=== PATIENT | female | born 1980 | race Caucasian/White ===

== ENCOUNTER 2016-08-30 21:59 | Emergency (ER) | payer MEDICARE ==
[~2016-08-30] VITALS: Ht 172.7 cm; Wt 55.0 kg
[~2016-08-30 21:59] MED LIST: TOPI200 PO; TOPR25TA PO; TRAZ100T4 PO; XARE10TA PO
[2016-08-30 22:01] VITALS: BP 121/79; PULSE 118; RESP 20; TEMP 98.5; O2SAT 99
[2016-08-31] MEDS ORDERED: ONDANSETRON HCL 4 MG/2 ML VIAL IV ONE (01:30)
[2016-08-31] MEDS ORDERED: SODIUM CHLOR 0.9% 1000 ML INJ 1,000 ML IV ONE (01:30)
[2016-08-31 01:37] VITALS: RESP 20; O2SAT 97
--- NOTE | 2016-08-31 02:00 | RADRPT ---
EXAM DATE/TIME: 08/31/2016 01:52 [facility] COMPARISON: CHEST SINGLE AP, February 24, 2016, 16:56. INDICATIONS : Cough, headache. MEDICAL HISTORY : Nonresponsive SURGICAL HISTORY : Nonresponsive ENCOUNTER: Initial ACUITY: 1 day PAIN SCORE: 0/10 LOCATION: Bilateral chest FINDINGS: The lungs are clear without infiltrate, nodule, or mass. There is no appreciable pleural effusion fo r technique. Heart and mediastinum are unremarkable. CONCLUSION: No acute cardiopulmonary disease. James Knott MD on August 31, 2016 at 1:58 Board Certified Radiologist. This report was verified electronically.
[2016-08-31 02:03] LABS: AUTOMATED NEUTROPHIL # 6.7 TH/MM3 (1.8-7.7); BASOPHIL % 0.4 % (0.0-2.0); EOSINOPHIL # 0.3 TH/MM3 (0-0.4); EOSINOPHIL % 2.5 % (0.0-4.0); HEMATOCRIT 38.3 % (35.0-46.0); HEMO FLAGS DIFF FINAL; LYMPH % 26.8 % (9.0-44.0); LYMPHOCYTE # 2.8 TH/MM3 (1.0-4.8); MEAN CELL VOLUME 86.5 FL (80.0-100.0); MEAN CORPUSCULAR HEMOGLOBIN 30.4 PG (27.0-34.0); MEAN CORPUSCULAR HGB CONC 35.2 % (32.0-36.0); MONO % 5.2 % (0.0-8.0); NEUT % 65.1 % (16.0-70.0); PLATELET COUNT 247 TH/MM3 (150-450); RED BLOOD COUNT 4.43 MIL/MM3 (4.00-5.30); RED CELL DISTRIBUTION WIDTH 12.7 % (11.6-17.2); WHITE BLOOD COUNT 10.3 TH/MM3 (4.0-11.0)
[2016-08-31 02:18] LABS: APTT (PATIENT) 27.8 SEC (24.3-30.1); PROTHROMBIN TIME - PATIENT 11.2 SEC (9.8-11.6)
[2016-08-31 02:22] LABS: ALT (GPT) 23 U/L (10-53); ANION GAP 7 MEQ/L (5-15); AST (GOT) 19 U/L (15-37); BICARBONATE 28.1 MEQ/L (21.0-32.0); BLOOD UREA NITROGEN 12 MG/DL (7-18); CHLORIDE 106 MEQ/L (98-107); GLOMERULAR FILTRATION RATE 68 ML/MIN (>89); POTASSIUM 3.7 MEQ/L (3.5-5.1); SODIUM (NA) 141 MEQ/L (136-145)
[2016-08-31 02:32] LABS: ALKALINE PHOSPHATASE 79 U/L (45-117); TOTAL BILIRUBIN ADULT 0.3 MG/DL (0.2-1.0)
[2016-08-31] MEDS ORDERED: HYDROmorphone HCL PF 1 MG/ML VIAL IV PUSH ONE (03:00)
[2016-08-31] MEDS ORDERED: PROCHLORPERAZINE INJ 10 MG/2 ML VIAL IV PUSH ONE (03:00)
--- NOTE | 2016-08-31 03:07 | PD ---
HPI Chief Complaint: Headache Time Seen by Provider: 01:19 Travel History International Travel<30 days: No Contact w/Intl Traveler<30days: No Traveled to known affect area: No History of Present Illness HPI The patient is a 36 year old female who presents to the [facility] emergency department with a long-standing history of migraine headaches. The patient reports that she had a neurostimulator implant placed approximately 3-4 years ago, however that has stopped functioning 2 years ago. She reports that she has not been able to follow-up with a neurologist for the last year. She reports that she has an appointment with a new neurologist in [place] next week. The patient reports that she has daily migraine headaches. She reports that normally she is able to cope with them by using ice packs on her head and taking Excedrin alternating with Tylenol. She reports that she was last seen in emergency department related to her migraines 3 months ago. She reports that she's had a daily migraine for the last 5 days that seems to be gradually worsening with time. She reports that her usual measures have not been helping. She reports that she's had nausea and vomiting associated with this. She reports that she's had vomiting 1 in the last 24 hours. She reports that her stool has been slightly more loose than usual. She denies having any fevers or chills. She reports that she does have urinary frequency and urgency and is concerned that she may have a urinary tract infection. Incidentally, she also reports that this morning she passed of vaginal blood clot. She reports that she has not been spotting since then. She reports that she has undergone a hysterectomy, therefore she is unsure where the blood came from. The patient has a prior history of cerebrovascular accident that affected her right side, however she has no residual weakness associated with this. She reports that this occurred at 2004. She reports that she has a quite a lot and is on Xarelto. The patient reports that the headache is her usual type migraine headache and is present all throughout her head and is a squeezing sensation. She reports that it is worse on the right side of her head compared to the left. On review of systems, the patient denies any cough, congestion, chest pain, shortness of breath, abdominal pain, diarrhea, urinary symptoms, slurred speech, facial droop, difficulty with word finding ability, one-sided weakness, or numbness or tingling to her extremities. PFSH Past Medical History Narrative Medical The patient's past medical history is significant for migraine headaches, seizure disorder, hypertension, prior history of cerebrovascular accident, coagulation disorder causing frequent blood clots. Hx Anticoagulant Therapy: Yes (Xarelto) Blood Disorders: Yes (FACTOR 5 LEIDEN,ANTIPHOSPOLIPID SYNDROME,FACTOR 2 GENOTATION, MTHFR, PE) Anxiety: Yes Depression: Yes Cerebrovascular Accident: Yes Diminished Hearing: No Deep Vein Thrombosis: Yes Headaches: Yes Hypertension: Yes Immune Disorder: Yes Immunizations Current: Yes Migraines: Yes Seizures: Yes Tetanus Vaccination: Unknown Influenza Vaccination: No PNEUMOCCOCAL Vaccine (Year): 4 ?: Not : 3 Para: 1 Dilation and Curettage (D&C): Yes Past Surgical History Narrative Surgical The patient's past surgical history is significant for a hysterectomy, nerve stimulator implant, nasal surgery. Gynecologic Surgery: Yes Hysterectomy: Yes Neurologic Surgery: Yes (NERVE STIMULATOR FOR MIGRAINES) Oral Surgery: Yes (NASAL SURGERY) Other Surgery: Yes (Hysterectomy) Social History Alcohol Use: No Tobacco Use: No Substance Use: No Allergies-Medications (Allergen,Severity, Reaction): Coded Allergies: Benadryl (Verified Adverse Reaction, Intermediate, Hallucinations, 08/31/16 ) ONLY WHEN GIVEN WITH TORADOL Toradol (Verified Adverse Reaction, Intermediate, Hallucinations, 08/31/16) ONLY WHEN GIVEN WITH BENADRYL Reported Meds & Prescriptions Reported Meds & Active Scripts Active Lortab (Hydrocodone-Acetaminophen) 5-325 Mg Tab 1 Tab PO Q6H PRN Prochlorperazine Supp (Prochlorperazine) 25 Mg Supp 25 Mg RECTAL Q12H PRN Reported Topamax (Topiramate) 200 Mg Tab 200 Mg PO BID Toprol XL (Metoprolol Succinate) 25 Mg Tab 25 Mg PO DAILY Xarelto (Rivaroxaban) 10 Mg Tab 10 Mg PO DAILY Review of Systems Except as stated in HPI: all other systems reviewed are Neg General / Constitutional: No: Fever Eyes: No: Visual changes HENT: Positive: Headaches, Neck Pain, No: Neck Stiffness Cardiovascular: No: Chest Pain or Discomfort Respiratory: No: Shortness of Breath Gastrointestinal: Positive: Nausea, Vomiting, Changes in Bowel Habits, No: Diarrhea, Abdominal Pain, Indigestion, Loss of Appetite Genitourinary: Positive: Urgency, Frequency, Vaginal Bleeding, No: Dysuria Musculoskeletal: No: Pain Skin: No Rash Neurologic: No: Weakness Psychiatric: No: Depression Endocrine: No: Polydipsia Hematologic/Lymphatic: No: Easy Bruising Physical Exam Narrative General: The patient is a well-developed well-nourished female, uncomfortable appearing on my arrival to the room, covering her head and intermittently crying. Head and Neck exam: Head is normocephalic atraumatic. Eyes: EOMI, pupils are equal round and reactive to light. Nose: Midline septum with pink mucous membranes Mouth: Dentition unremarkable. Moist mucus membranes. Posterior oropharynx is not erythematous. No tonsillar hypertrophy. Uvula midline. Airway patent. Neck: No palpable lymphadenopathy. No nuchal rigidity. No thyromegaly. Cardiovascular: Sinus tachycardia in the low 100 without murmurs, gallops, or rubs. No pulse deficits to the extremities on simultaneous auscultation and palpation of her radial artery. Lungs: Clear to auscultation bilaterally. No wheezes, rhonchi, or rales. Abdomen: Soft, without tenderness to palpation in all 4 quadrants of the abdomen. No guarding, rebound, or rigidity. Normal bowel sounds are audible. No tenderness on palpation of McBurney's point. Negative Dave's sign. Extremities: No clubbing, cyanosis, or edema. 2+ pulses in all 4 extremities. No calf tenderness on palpation. Back: No costovertebral angle tenderness to palpation. Neurologic Exam: Cranial nerves 2-12 were intact on exam. Strength is 5/5 in all 4 extremities. No sensory deficits noted. Skin Exam: No rash noted. Intact skin that is warm and dry. Gynecologic exam: The patient was placed in the dorsal lithotomy position. Her external genitalia were examined. She had no evidence of rash or lesions. The speculum was placed into her vagina and the cervix was identified. She had a physiologic appearing clear white discharge. On Bimanual exam: she has no cervical motion tenderness. No adnexal tenderness or prominence noted on palpation. Data Data Last Documented VS Vital Signs Date Time Temp Pulse Resp B/P Pulse Ox O2 Delivery O2 Flow Rate FiO2 08/31/16 01:37 20 97 Room Air 08/30/16 22:01 98.5 118 121/79 Orders Complete Blood Count With Diff (08/31/16:19) Comprehensive Metabolic Panel (08/31/16:19) Prothrombin Time / Inr (Pt) (08/31/16:19) Act Partial Throm Time (Ptt) (08/31/16:19) Urinalysis - C+S If Indicated (08/31/16:19) Thyroid Stimulating Hormone (08/31/16:19) Chest, Single Ap (08/31/16:19) Ct Brain W/O Iv Contrast(Rout) (08/31/16:19) Iv Access Insert/Monitor (08/31/16:19) Ecg Monitoring (08/31/16:19) Oximetry (08/31/16:19) Type And Screen (08/31/16:19) Ed Urine Pregnancytest Poc (08/31/16:19) Sodium Chlor 0.9% 1000 Ml Inj (Ns 1000 M (08/31/16 01:30) Ondansetron Inj (Zofran Inj) (08/31/16 01:30) Hydromorphone Pf Inj (Dilaudid Pf Inj) (08/31/16 03:00) Prochlorperazine Inj (Compazine Inj) (08/31/16 03:00) Gc And Chlamydia Pcr (08/31/16 04:18) Wet Prep Profile (08/31/16 04:18) Rivaroxaban (Xarelto) (08/31/16 04:45) Topiramate (Topamax) (08/31/16 04:45) Labs Laboratory Tests Test 08/31/16 01:35 White Blood Count 10.3 TH/MM3 Red Blood Count 4.43 MIL/MM3 Hemoglobin 13.5 GM/DL Hematocrit 38.3 % Mean Corpuscular Volume 86.5 FL Mean Corpuscular Hemoglobin 30.4 PG Mean Corpuscular Hemoglobin 35.2 % Concent Red Cell Distribution Width 12.7 % Platelet Count 247 TH/MM3 Mean Platelet Volume 9.1 FL Neutrophils (%) (Auto) 65.1 % Lymphocytes (%) (Auto) 26.8 % Monocytes (%) (Auto) 5.2 % Eosinophils (%) (Auto) 2.5 % Basophils (%) (Auto) 0.4 % Neutrophils # (Auto) 6.7 TH/MM3 Lymphocytes # (Auto) 2.8 TH/MM3 Monocytes # (Auto) 0.5 TH/MM3 Eosinophils # (Auto) 0.3 TH/MM3 Basophils # (Auto) 0.0 TH/MM3 CBC Comment DIFF FINAL Differential Comment Prothrombin Time 11.2 SEC Prothromb Time International 1.0 RATIO Ratio Activated Partial 27.8 SEC Thromboplast Time Sodium Level 141 MEQ/L Potassium Level 3.7 MEQ/L Chloride Level 106 MEQ/L Carbon Dioxide Level 28.1 MEQ/L Anion Gap 7 MEQ/L Blood Urea Nitrogen 12 MG/DL Creatinine 0.94 MG/DL Estimat Glomerular Filtration 68 ML/MIN Rate Random Glucose 97 MG/DL Calcium Level 8.9 MG/DL Total Bilirubin 0.3 MG/DL Aspartate Amino Transf 19 U/L (AST/SGOT) Alanine Aminotransferase 23 U/L (ALT/SGPT) Alkaline Phosphatase 79 U/L Total Protein 7.7 GM/DL Albumin 4.4 GM/DL Thyroid Stimulating Hormone 2.320 uIU/ML 3rd Gen Blood Type O POSITIVE Antibody Screen NEGATIVE MDM Medical Decision Making Medical Screen Exam Complete: Yes Emergency Medical Condition: Yes Medical Record Reviewed: Yes Interpretation(s) Last Impressions Head CT 08/31/16118 Signed Impressions: Service Date/Time: Wednesday, August 31, 2016 04:25 - CONCLUSION: Unremarkable study. James Knott MD Chest X-Ray 08/31/16118 Signed Impressions: Service Date/Time: Wednesday, August 31, 2016 01:52 - CONCLUSION: No acute cardiopulmonary disease. James Knott MD Differential Diagnosis Migraine headache, versus intracranial hemorrhage due to being anticoagulated on Xarelto, versus tension headache, versus sinus headache, versus cluster headache Narrative Course During the course of the patients emergency department visit, the patients history, examination, and differential diagnosis were reviewed with the patient. The patient had IV access obtained and blood work sent for analysis. The patient's lites on a cardiac sonographer with oximetry and blood pressure monitoring. A CT scan of the brain was ordered. A chest x-ray was ordered. The patient was initially provided normal saline 1 L IV fluid bolus, Zofran 4 mg IV for nausea. The patient had persistent nausea and was given Compazine 5 mg IV, hydromorphone 1 mg IV for pain. The patients laboratory studies were reviewed and remarkable for a CBC within normal limits, CMP within normal limits, TSH 2.32, PT 11.2, PTT 27.8. Radiology studies were reviewed and remarkable for a chest x-ray that shows no acute abnormality. CT scan of the brain shows no acute abnormality. The patient reports that it has been over 24 hours since her last doses of Xarelto and she does not have it with her, therefore she would like this to be administered. The patient reports that she is also late taking her nighttime dose of Topamax. The patient had both of these medications administered in the doses that she reports being on currently. The patient will be discharged home to follow-up with her primary care physician and new neurologist. The patient was given a prescription for Compazine rectal suppositories for nausea and Lortab for pain. The patient is resting comfortably and feels better, is alert and in no distress. The patients results and examination findings were discussed with the patient. The repeat examination is unremarkable and benign. The history, exam, diagnostic testing, and current condition do not suggest any significant pathology to warrant further testing, continued ED treatment, admission, or surgical evaluation at this point. The vital signs have been stable. The patient does not have uncontrollable pain, intractable vomiting, or other significant symptoms. The patient's condition is stable and appropriate for discharge. The patient will pursue further outpatient evaluation with a primary care physician or other designated or consulting physician as indicated in the discharge instructions. The patient expressed understanding and was agreeable with this plan. Diagnosis Primary Impression: Migraine Qualified Code: G43.909 - Migraine without status migrainosus, not intractable , unspecified migraine type Referrals: Neurologist Primary Care Physician Patient Instructions: General Instructions, Migraine Headache (ED) Med/Other Pt SpecificInfo: Prescription(s) given Scripts Hydrocodone-Acetaminophen (Lortab)5-325 Mg Tab1 Tab PO Q6H PRN (PAIN) #6 TAB Ref 0 Prov:Caryn Walden MD 08/31/16 Prochlorperazine Supp 25 Mg Supp25 Mg RECTAL Q12H PRN (NAUSEA OR VOMITING) #3 SUPP Ref 0 Prov:Caryn Walden MD 08/31/16 Disposition: 01 DISCHARGE HOME Condition: Stable Caryn Walden MD Aug 31, 2016 03:07
--- NOTE | 2016-08-31 04:33 | RADRPT ---
EXAM DATE/TIME: 08/31/2016 04:25 [facility] COMPARISON: CT BRAIN W/O CONTRAST, October 19, 2015, 18:45. INDICATIONS : Headaches. RADIATION DOSE: 38.61 CTDIvol (mGy) MEDICAL HISTORY : Cerebrovascular disease. Seizures. Hypertension.DVT SURGICAL HISTORY : Hysterectomy. ENCOUNTER: Initial ACUITY: 4 - 6 days PAIN SCALE: 10/10 LOCATION: cranial TECHNIQUE: Multiple contiguous axial images were obtained of the head. Using automated exposure control and adj ustment of the mA and/or kV according to patient size, radiation dose was kept as low as reasonably a chievable to obtain optimal diagnostic quality images. FINDINGS: There is no evidence for intracranial hemorrhage, mass effect, mass lesions, edema, or extra-axial fl uid collections. The visualized bony structures appear intact. The ventricles are normal size for t he patient's age. There are no signs of acute infarction for technique. CONCLUSION: Unremarkable study. James Knott MD on August 31, 2016 at 4:31 Board Certified Radiologist. This report was verified electronically.
[2016-08-31] MEDS ORDERED: HYDR-3533 PO (04:44)
[2016-08-31] MEDS ORDERED: PROC25SU22 RECTAL (04:44)
[2016-08-31] MEDS ORDERED: TOPIRAMATE 100 MG TAB PO ONE (04:45)
[2016-08-31] MEDS ORDERED: RIVAROXABAN 10 MG TAB PO ONE (04:45)
[2016-08-31 07:59] LABS: CHLAMYDIA PCR NOT DETECTED (NOT DETECT); NEISSERIA PCR NOT DETECTED (NOT DETECT)
== END 2016-08-31 05:25 | disposition home or self-care (01) ==
LOC: NEPE 21:59
DX: G43.909 Migraine, unspecified, not intractable, without status migrainosus (principal); R35.0 Frequency of micturition; R39.15 Urgency of urination; N93.9 Abnormal uterine and vaginal bleeding, unspecified; I10 Essential (primary) hypertension; Z79.01 Long term (current) use of anticoagulants; Z86.69 Personal history of other diseases of the nervous system and sense organs; Z86.79 Personal history of other diseases of the circulatory system; Z86.2 Personal history of diseases of the blood and blood-forming organs and certain disorders involving the immune mechanism; Z86.59 Personal history of other mental and behavioral disorders; Z86.718 Personal history of other venous thrombosis and embolism
CPT/HCPCS: 70450; 71010; 80053; 84443; 84703; 85025; 85610; 85730; 86850; 86900; 86901; 87210; 87491; 87591; 96374; 96375; 99285; J0780; J1170; J2405; J7030

== ENCOUNTER 2016-12-15 08:00 | Emergency (ER) | payer MEDICAID, MEDICARE, OTHER ==
[~2016-12-15] VITALS: Ht 170.2 cm; Wt 55.0 kg
[~2016-12-15 08:00] MED LIST changes: +HYDR-3533 PO; +PROC25SU22 RECTAL; -TRAZ100T4 PO
[2016-12-15 08:03] VITALS: BP 108/70; PULSE 98; RESP 18; TEMP 98.4; O2SAT 99
[2016-12-15 08:10] VITALS: BP 127/64; PULSE 98; RESP 17; TEMP 97.8; O2SAT 100
[2016-12-15] MEDS ORDERED: TRAZ50TA12 PO (08:16)
[2016-12-15] MEDS ORDERED: GABA300C5 PO (08:16)
[2016-12-15] MEDS ORDERED: MORPHINE SULFATE 4 MG/ML INJ IV PUSH ONE (08:45)
[2016-12-15] MEDS ORDERED: ONDANSETRON HCL 4 MG/2 ML VIAL IV PUSH ONE (08:45)
--- NOTE | 2016-12-15 08:53 | PD ---
HPI Chief Complaint: Headache Time Seen by Provider: 08:19 Travel History International Travel<30 days: No Contact w/Intl Traveler<30days: No Traveled to known affect area: No History of Present Illness HPI 36-year-old female complains of headache. Patient has history of migraine has been seen with personal physician in the past for that. Patient states that workup was negative the past. Patient also complained aching all over the body including chest discomfort. Patient states that she had positive disease and that the chronic condition is not new. Patient denies any recent head injury. Patient states that she has nausea vomiting and photophobia with the headache. PFSH Past Medical History Hx Anticoagulant Therapy: Yes (xarelto ) Blood Disorders: Yes (FACTOR 5 LEIDEN,ANTIPHOSPOLIPID SYNDROME,FACTOR 2 GENOTATION, MTHFR, PE) Anxiety: Yes Depression: Yes Cardiovascular Problems: Yes Cerebrovascular Accident: Yes (STROKE 10 YEARS AGO) Diminished Hearing: No Deep Vein Thrombosis: Yes Headaches: Yes Hypertension: Yes Immune Disorder: Yes Neurologic: Yes Psychiatric: Yes Immunizations Current: Yes Migraines: Yes Seizures: Yes Tetanus Vaccination: > 5 Years Influenza Vaccination: Yes PNEUMOCCOCAL Vaccine (Year): 4 ?: Not : 3 Para: 1 Dilation and Curettage (D&C): Yes Past Surgical History Body Medical Devices: BODY PIERCING - BELLY Gynecologic Surgery: Yes Hysterectomy: Yes Neurologic Surgery: Yes (NERVE STIMULATOR FOR MIGRAINES) Oral Surgery: Yes (NASAL SURGERY) Thoracic Surgery: No Other Surgery: Yes (Hysterectomy) Social History Alcohol Use: No Tobacco Use: No Substance Use: No Allergies-Medications (Allergen,Severity, Reaction): Coded Allergies: diphenhydramine (Verified Adverse Reaction, Intermediate, Hallucinations, 12/15/16) ONLY WHEN GIVEN WITH TORADOL ketorolac (Verified Adverse Reaction, Intermediate, Hallucinations, ) ONLY WHEN GIVEN WITH BENADRYL Reported Meds & Prescriptions Reported Meds & Active Scripts Active Reported Trazodone (Trazodone HCl) 50 Mg Tab 50 Mg PO HS Gabapentin 300 Mg Cap 300 Mg PO BID Topamax (Topiramate) 200 Mg Tab 200 Mg PO BID Toprol XL (Metoprolol Succinate) 25 Mg Tab 25 Mg PO DAILY Xarelto (Rivaroxaban) 10 Mg Tab 10 Mg PO DAILY Review of Systems General / Constitutional: No: Fever Eyes: Positive: Photophobia, No: Visual changes HENT: Positive: Headaches Cardiovascular: No: Chest Pain or Discomfort Respiratory: No: Shortness of Breath Gastrointestinal: Positive: Nausea, Vomiting, No: Abdominal Pain Genitourinary: No: Dysuria Musculoskeletal: No: Pain Skin: No Rash Neurologic: No: Weakness Psychiatric: No: Depression Endocrine: No: Polydipsia Hematologic/Lymphatic: No: Easy Bruising Physical Exam Narrative GENERAL: Well-nourished, well-developed patient. SKIN: Focused skin assessment warm/dry. HEAD: Normocephalic. EYES: No scleral icterus. No injection or drainage. Pupils 2 mm equal reactive. NECK: Supple, trachea midline. No JVD or lymphadenopathy. CARDIOVASCULAR: Regular rate and rhythm without murmurs, gallops, or rubs. RESPIRATORY: Breath sounds equal bilaterally. No accessory muscle use. GASTROINTESTINAL: Abdomen soft, non-tender, nondistended. MUSCULOSKELETAL: No cyanosis, or edema. BACK: Nontender without obvious deformity. No CVA tenderness. Neurologic exam normal. Data Data Last Documented VS Vital Signs Date Time Temp Pulse Resp B/P (MAP) Pulse Ox O2 Delivery O2 Flow Rate FiO2 12/15/16 08:10 97.8 98 17 127/64 (85) 100 12/15/16 08:10 Room Air Orders Orders Electrocardiogram (12/15/16 ) Morphine Inj (Morphine Inj) (12/15/16 08:45) Ondansetron Inj (Zofran Inj) (12/15/16 08:45) MDM Medical Decision Making Medical Screen Exam Complete: Yes Emergency Medical Condition: Yes Differential Diagnosis Differential diagnosis including migraine headache, tension headache, cluster headache, chronic pain. Narrative Course 36-year-old female with headache, photophobia, nausea vomiting. History of migraine. Patient also had body aches and chest discomfort. Patient states that she history of Wilder disease. Morphine 2 mg IV. Zofran 4 mg IV. Diagnosis Primary Impression: Migraine headache Qualified Codes: G43.909 - Migraine, unspecified, not intractable, without status migrainosus Patient Instructions: General Instructions Additional Instructions: Fioricet as needed for headache. Follow-up with local physician. Med/Other Pt SpecificInfo: Prescription(s) given Scripts Ondansetron Odt (Zofran Odt) 4 Mg Tab 4 MG SL Q6HR Y for Nausea/Vomiting, #10 TAB 0 Refills Prov: Preet Baker MD 12/15/16 Zmrmafadpd-Mbjrtgejenpmw-Hlkmnizv (Fioricet) 50-300-40 Mg Cap 1-2 CAP PO Q6H Y for HEADACHE, #30 CAP 0 Refills Prov: Preet Baker MD 12/15/16 Disposition: 01 DISCHARGE HOME Condition: Stable Preet Baker MD Dec 15, 2016 08:53
[2016-12-15] MEDS ORDERED: BUTA1CAP PO (08:57)
[2016-12-15] MEDS ORDERED: ZOFR4TAB3 SL (08:57)
[2016-12-15 09:03] VITALS: RESP 17
[2016-12-15 10:20] VITALS: BP 120/77; TEMP 97.8
--- NOTE | 2016-12-15 17:04 | EKG ---
Date Performed: 12/15/2016 Time Performed: 08:27:25 PTAGE: 36 years EKG: Sinus rhythm NORMAL ECG Since PREVIOUS TRACING , no significant change noted PREVIOUS TRACIN02/24/2016 15.52 DOCTOR: Yadira Moya Interpretating Date/Time 12/15/2016 17:02:48
== END 2016-12-15 10:20 | disposition home or self-care (01) ==
LOC: NEPE 08:00
DX: G43.909 Migraine, unspecified, not intractable, without status migrainosus (principal); M79.1 Myalgia; R07.89 Other chest pain; I10 Essential (primary) hypertension; Z79.01 Long term (current) use of anticoagulants; Z86.2 Personal history of diseases of the blood and blood-forming organs and certain disorders involving the immune mechanism; Z86.59 Personal history of other mental and behavioral disorders; Z86.79 Personal history of other diseases of the circulatory system; Z86.718 Personal history of other venous thrombosis and embolism; Z86.69 Personal history of other diseases of the nervous system and sense organs
CPT/HCPCS: 93005; 96374; 96375; 99284; J2270; J2405

== ENCOUNTER 2016-12-29 15:52 | Emergency (ER) | payer MEDICARE, OTHER ==
[~2016-12-29 15:52] MED LIST changes: +BUTA1CAP PO; +GABA300C5 PO; -HYDR-3533 PO; -PROC25SU22 RECTAL; +TRAZ50TA12 PO; +ZOFR4TAB3 SL
== END 2016-12-29 17:41 | disposition left against medical advice (07) ==
LOC: NEDAMB 15:52
DX: R68.89 Other general symptoms and signs (principal)
CPT/HCPCS: 99281

== ENCOUNTER 2017-06-17 20:57 | Emergency (ER) | payer MEDICAID ==
[~2017-06-17] VITALS: Ht 172.7 cm; Wt 56.0 kg
[2017-06-17 21:04] VITALS: BP 119/71; PULSE 98; RESP 20; TEMP 98.5; O2SAT 93
[2017-06-17] MEDS ORDERED: HYDROmorphone HCL PF 1 MG/ML VIAL IV PUSH ONE (21:30)
[2017-06-17] MEDS ORDERED: PROCHLORPERAZINE INJ 10 MG/2 ML VIAL IV PUSH ONE (21:30)
[2017-06-17] MEDS ORDERED: SODIUM CHLORID 0.9% 500 ML INJ 500 ML IV ONE (21:30)
--- NOTE | 2017-06-17 21:32 | PD ---
HPI Chief Complaint: Seizure Time Seen by Provider: 21:13 Travel History International Travel<30 days: No Contact w/Intl Traveler<30days: No Traveled to known affect area: No History of Present Illness HPI The patient is a 36 year old female who presents to the [facility] emergency department with a history of having 2 generalized clonic tonic seizures while at work prior to arrival. The patient was at work at a local restaurant. The patient was witnessed to have the seizures. It is unknown how long it lasted. The patient was altered after the seizure and in a postictal state. Since arriving in the emergency department she has had improvement and is oriented. She reports having nausea and was given Zofran 4 mg IV 1 by ambulance services. The patient now reports having a headache. She is unsure whether she had a headache prior to the seizure, however she reports having history of migraine headaches that are severe and often associated with seizure activity. She reports that she is on Topamax for seizures and prevention of migraines. She reports that she has been taking all of her medications on a regular basis. Her primary care physician is Dr. Rubio in [place], [place]. Her neurologist is in [place], [place]. The patient reports having a history of coagulation disorder chronically anticoagulated on Xarelto. She reports having a history of prior cerebrovascular accident and pulmonary embolism in February 2017. The patient reports that her headache currently is similar to her prior headaches. She reports that she normally takes Excedrin when she has a headache. She reports that the headache is located over bilateral temples and goes down her neck. She reports it is worse on the left compared to the right. She reports having associated nausea without vomiting. She reports having sensitivity to light and sound. She denies having any one-sided weakness, slurred speech, facial droop, vision changes, or difficulty with word finding ability. She denies having any known recent fevers,cough, congestion, neck pain , chest pain, shortness of breath, abdominal pain, diarrhea, urinary symptoms, or neurologic symptoms. 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 Hx Anticoagulant Therapy: Yes (XARALTO) Arthritis: No Blood Disorders: Yes (FACTOR 5 LEIDEN,ANTIPHOSPOLIPID SYNDROME,FACTOR 2 GENOTATION, MTHFR, PE) Anxiety: Yes Depression: Yes Cardiovascular Problems: Yes (AFIB) Cerebrovascular Accident: Yes Diminished Hearing: No Deep Vein Thrombosis: Yes Headaches: Yes Hypertension: Yes Immune Disorder: Yes Neurologic: Yes Psychiatric: Yes Respiratory: Yes (PE) Immunizations Current: Yes Migraines: Yes Seizures: Yes PNEUMOCCOCAL Vaccine (Year): 4 ?: Not : 3 Para: 1 Dilation and Curettage (D&C): Yes Past Surgical History Narrative Surgical The patient's past surgical history is significant for hysterectomy, nerve stimulator implant, nasal surgery Body Medical Devices: BODY PIERCING - BELLY Gynecologic Surgery: Yes Hysterectomy: Yes Neurologic Surgery: Yes (NERVE STIMULATOR FOR MIGRAINES) Oral Surgery: Yes (NASAL SURGERY) Thoracic Surgery: No Other Surgery: Yes (Hysterectomy) Social History Alcohol Use: No Tobacco Use: No Substance Use: No Allergies-Medications (Allergen,Severity, Reaction): Coded Allergies: diphenhydramine (Verified Adverse Reaction, Intermediate, Hallucinations, 06/17/17) ONLY WHEN GIVEN WITH TORADOL ketorolac (Verified Adverse Reaction, Intermediate, Hallucinations, ) ONLY WHEN GIVEN WITH BENADRYL Reported Meds & Prescriptions Reported Meds & Active Scripts Active Zofran Odt (Ondansetron Odt) 4 Mg Tab 4 Mg SL Q6HR PRN Fioricet (Pybokcjslv-Wpleugqybvtge-Gzlgfzit) 50-300-40 Mg Cap 1-2 Cap PO Q6H PRN Reported Trazodone (Trazodone HCl) 50 Mg Tab 50 Mg PO HS Gabapentin 300 Mg Cap 300 Mg PO BID Topamax (Topiramate) 200 Mg Tab 200 Mg PO BID Toprol XL (Metoprolol Succinate) 25 Mg Tab 25 Mg PO DAILY Xarelto (Rivaroxaban) 10 Mg Tab 10 Mg PO DAILY Review of Systems Except as stated in HPI: all other systems reviewed are Neg General / Constitutional: No: Fever Eyes: No: Visual changes HENT: Positive: Headaches, Neck Pain, No: Rhinorrhea, Congestion, Neck Stiffness Cardiovascular: No: Chest Pain or Discomfort Respiratory: No: Cough, Shortness of Breath Gastrointestinal: Positive: Nausea, No: Vomiting, Diarrhea, Abdominal Pain Genitourinary: No: Dysuria Musculoskeletal: No: Pain Skin: No Rash Neurologic: Positive: Change in Mentation, Seizures, No: Weakness, Focal Abnormalities, Slurred Speech, Sensory Disturbance Psychiatric: No: Depression Endocrine: No: Polydipsia Hematologic/Lymphatic: No: Easy Bruising Physical Exam Narrative General: The patient is a well-developed well-nourished female in no acute distress. Head and Neck exam: Head is normocephalic atraumatic. Eyes: EOMI, pupils are equal round and reactive to light. Nose: Midline septum with pink mucous membranes Mouth: Dentition unremarkable. Moist mucus membranes. Posterior oropharynx is not erythematous. No tonsillar hypertrophy. Uvula midline. Airway patent. Neck: No palpable lymphadenopathy. No nuchal rigidity. No thyromegaly. Cardiovascular: Regular sounding tachycardia in the low 100 without murmurs, gallops, or rubs. No pulse deficit to the extremities on simultaneous auscultation and palpation of her radial artery. Lungs: Clear to auscultation bilaterally. No wheezes, rhonchi, or rales. Abdomen: Soft, without tenderness to palpation in all 4 quadrants of the abdomen. No guarding, rebound, or rigidity. Normal bowel sounds are audible. No tenderness on palpation of McBurney's point. Negative Dave sign. Extremities: No clubbing, cyanosis, or edema. 2+ pulses in all 4 extremities. Back: No spinous process tenderness to palpation. No costovertebral angle tenderness to palpation. Neurologic Exam: Cranial nerves 2-12 were intact on exam. Strength is 5/5 in all 4 extremities. No sensory deficits noted. Skin Exam: No rash noted. Intact skin that is warm and dry. Data Data Last Documented VS Vital Signs Date Time Temp Pulse Resp B/P (MAP) Pulse Ox O2 Delivery O2 Flow Rate FiO2 06/17/17 21:11 98 15 99 Room Air 06/17/17 21:04 98.5 119/71 (87) Orders Orders Electrocardiogram (06/17/17 21:25) Complete Blood Count With Diff (06/17/17 21:25) Comprehensive Metabolic Panel (06/17/17 21:25) Creatine Kinase (Cpk) (06/17/17 21:25) Ckmb (Isoenzyme) Profile (06/17/17 21:25) Troponin I (06/17/17 21:25) Prothrombin Time / Inr (Pt) (06/17/17 21:25) Act Partial Throm Time (Ptt) (06/17/17 21:25) Urinalysis - C+S If Indicated (06/17/17 21:25) Magnesium (Mg) (06/17/17 21:25) Thyroid Stimulating Hormone (06/17/17 21:25) Chest, Single Ap (06/17/17 21:25) Ct Brain W/O Iv Contrast(Rout) (06/17/17 21:25) Iv Access Insert/Monitor (06/17/17 21:25) Ecg Monitoring (06/17/17 21:25) Oximetry (06/17/17 21:25) Sodium Chlorid 0.9% 500 Ml Inj (Ns 500 M (06/17/17 21:30) Hydromorphone Pf Inj (Dilaudid Pf Inj) (06/17/17 21:30) Prochlorperazine Inj (Compazine Inj) (06/17/17 21:30) Hydromorphone Pf Inj (Dilaudid Pf Inj) (06/17/17 21:45) Labs Laboratory Tests Test 06/17/17 21:35 White Blood Count 9.9 TH/MM3 Red Blood Count 4.66 MIL/MM3 Hemoglobin 14.2 GM/DL Hematocrit 41.3 % Mean Corpuscular Volume 88.5 FL Mean Corpuscular Hemoglobin 30.4 PG Mean Corpuscular Hemoglobin Concent 34.4 % Red Cell Distribution Width 13.1 % Platelet Count 247 TH/MM3 Mean Platelet Volume 8.9 FL Neutrophils (%) (Auto) 71.5 % Lymphocytes (%) (Auto) 22.6 % Monocytes (%) (Auto) 4.7 % Eosinophils (%) (Auto) 0.8 % Basophils (%) (Auto) 0.4 % Neutrophils # (Auto) 7.1 TH/MM3 Lymphocytes # (Auto) 2.2 TH/MM3 Monocytes # (Auto) 0.5 TH/MM3 Eosinophils # (Auto) 0.1 TH/MM3 Basophils # (Auto) 0.0 TH/MM3 CBC Comment DIFF FINAL Differential Comment Prothrombin Time 11.3 SEC Prothromb Time International Ratio 1.1 RATIO Activated Partial Thromboplast Time 29.1 SEC Blood Urea Nitrogen 13 MG/DL Creatinine 0.90 MG/DL Random Glucose 82 MG/DL Total Protein 8.7 GM/DL Albumin 4.9 GM/DL Calcium Level 9.0 MG/DL Magnesium Level 2.0 MG/DL Alkaline Phosphatase 71 U/L Aspartate Amino Transf (AST/SGOT) 17 U/L Alanine Aminotransferase (ALT/SGPT) 16 U/L Total Bilirubin 0.4 MG/DL Sodium Level 136 MEQ/L Potassium Level 3.4 MEQ/L Chloride Level 106 MEQ/L Carbon Dioxide Level 22.6 MEQ/L Anion Gap 7 MEQ/L Estimat Glomerular Filtration Rate 72 ML/MIN Total Creatine Kinase 88 U/L Troponin I LESS THAN 0.02 NG/ML Thyroid Stimulating Hormone 3rd Gen 2.260 uIU/ML MDM Medical Decision Making Medical Screen Exam Complete: Yes Emergency Medical Condition: Yes Medical Record Reviewed: Yes Interpretation(s) Last Impressions Head CT 06/17/172124 Signed Impressions: Service Date/Time: Saturday, June 17, 2017 22:31 - CONCLUSION: Normal examination. Per Rodríguez MD Chest X-Ray 06/17/172124 Signed Impressions: Service Date/Time: Saturday, June 17, 2017 21:37 - CONCLUSION: Clear lungs. Per Rodríguez MD Differential Diagnosis Migraine headache with pain lowering her seizure threshold, versus medication noncompliance, versus stress lowering seizure threshold, versus loss of sleep lowering seizure threshold, versus electrolyte derangement, versus intracranial abnormal Narrative Course During the course of the patient's emergency department visit, the patient's history, examination, and differential diagnosis were reviewed with the patient. The patient was placed on a repair miller with oximetry and frequent blood pressure monitoring. The patient had IV access obtained and blood work sent for analysis. The patient had a EKG done on arrival. The patient's EKG shows a sinus rhythm heart rate of 99, and QRS duration is 90 ms, QTC 398 ms. T waves are inverted in lead III, V1. No acute ST segment elevation. The patient was initially provided normal saline at 500 mL bolus 1, hydromorphone 0.5 mg IV, Compazine 5 mg IV. The patient's laboratory studies were reviewed and remarkable for a white count of 9.9, hemoglobin 14.2, platelets 247 with 71.5 neutrophils, CMP is remarkable for potassium of 3.4, GFR 72, cardiac enzymes within normal limits, TSH 2.26, PT PTT within normal limits Radiology studies were reviewed and remarkable for a chest x-ray that shows no acute cardiopulmonary, CT scan of the brain shows no acute abnormality. The patient was reexamined and reportedly was feeling improved. The patient's family member arrived at the bedside and will be able to transport the patient home. The patient is resting comfortably and feels better, is alert and in no distress. The patient's results and examination findings were discussed with the patient. The repeat examination is unremarkable and benign. The history, exam, diagnostic testing, and current condition do not suggest any significant pathology to warrant further testing, continued ED treatment, admission, or surgical evaluation at this point. The vital signs have been stable. The patient does not have uncontrollable pain, intractable vomiting, or other significant symptoms. The patient's condition is stable and appropriate for discharge. The patient will pursue further outpatient evaluation with a primary care physician or other designated or consulting physician as indicated in the discharge instructions. The patient expressed understanding and was agreeable with this plan. Diagnosis Primary Impression: Migraine headache Qualified Codes: G43.909 - Migraine, unspecified, not intractable, without status migrainosus Additional Impression: Seizure Referrals: Neurologist 2 days Primary Care Physician 2 days Patient Instructions: General Instructions, Generalized Tonic Clonic Seizures ( ED), Migraine Headache (ED) Med/Other Pt SpecificInfo: No Change to Meds Disposition: 01 DISCHARGE HOME Condition: Stable Caryn Walden MD Jun 17, 2017 21:32
[2017-06-17 21:45] LABS: AUTOMATED NEUTROPHIL # 7.1 TH/MM3 (1.8-7.7); BASOPHIL % 0.4 % (0.0-2.0); EOSINOPHIL # 0.1 TH/MM3 (0-0.4); EOSINOPHIL % 0.8 % (0.0-4.0); HEMATOCRIT 41.3 % (35.0-46.0); HEMOGLOBIN 14.2 GM/DL (11.6-15.3); LYMPH % 22.6 % (9.0-44.0); LYMPHOCYTE # 2.2 TH/MM3 (1.0-4.8); MEAN CELL VOLUME 88.5 FL (80.0-100.0); MEAN CORPUSCULAR HEMOGLOBIN 30.4 PG (27.0-34.0); MEAN CORPUSCULAR HGB CONC 34.4 % (32.0-36.0); MEAN PLATELET VOLUME 8.9 FL (7.0-11.0); MONO % 4.7 % (0.0-8.0); MONOCYTE # 0.5 TH/MM3 (0-0.9); NEUT % 71.5 % (16.0-70.0); PLATELET COUNT 247 TH/MM3 (150-450); RED BLOOD COUNT 4.66 MIL/MM3 (4.00-5.30); RED CELL DISTRIBUTION WIDTH 13.1 % (11.6-17.2); WHITE BLOOD COUNT 9.9 TH/MM3 (4.0-11.0)
[2017-06-17] MEDS ORDERED: HYDROmorphone HCL PF 2 MG/ML VIAL IV PUSH ONE (21:45)
[2017-06-17 21:54] LABS: INTERNATIONAL NORMALIZED RATIO 1.1 RATIO; PROTHROMBIN TIME - PATIENT 11.3 SEC (9.8-11.6)
--- NOTE | 2017-06-17 21:56 | RADRPT ---
EXAM DATE/TIME: 06/17/2017 21:37 [facility] COMPARISON: CHEST SINGLE AP, August 31, 2016, 1:52. INDICATIONS : Syncope. Possible seizure. MEDICAL HISTORY : Cerebrovascular disease. Seizures. Hypertension.DVT SURGICAL HISTORY : Hysterectomy. ENCOUNTER: Initial ACUITY: 1 day PAIN SCORE: Non-responsive. LOCATION: Bilateral chest FINDINGS: A single view of the chest demonstrates the lungs to be symmetrically aerated without evidence of mas s, infiltrate or effusion. The cardiomediastinal contours are unremarkable. Osseous structures are intact. CONCLUSION: Clear lungs. Per Rodríguez MD on June 17, 2017 at 21:54 Board Certified Radiologist. This report was verified electronically.
[2017-06-17 22:20] LABS: ALBUMIN 4.9 GM/DL (3.4-5.0); ALT (GPT) 16 U/L (10-53); AST (GOT) 17 U/L (15-37); BICARBONATE 22.6 MEQ/L (21.0-32.0); BLOOD UREA NITROGEN 13 MG/DL (7-18); CHLORIDE 106 MEQ/L (98-107); GLOMERULAR FILTRATION RATE 72 ML/MIN (>89); GLUCOSE,RANDOM 82 MG/DL (74-106); SODIUM (NA) 136 MEQ/L (136-145)
[2017-06-17 22:30] LABS: ALKALINE PHOSPHATASE 71 U/L (45-117); TOTAL BILIRUBIN ADULT 0.4 MG/DL (0.2-1.0); TOTAL PROTEIN 8.7 GM/DL (6.4-8.2); TROPONIN I LESS THAN 0.02 NG/ML (0.02-0.05)
--- NOTE | 2017-06-17 22:45 | RADRPT ---
EXAM DATE/TIME: 06/17/2017 22:31 [facility] COMPARISON: CT BRAIN W/O CONTRAST, August 31, 2016, 4:25. INDICATIONS : Cephalgia. RADIATION DOSE: 35.23 CTDIvol (mGy) MEDICAL HISTORY : Cerebrovascular disease. Seizures. Hypertension.DVT SURGICAL HISTORY : Hysterectomy. ENCOUNTER: Initial ACUITY: 1 day PAIN SCALE: 7/10 LOCATION: cranial TECHNIQUE: Multiple contiguous axial images were obtained of the head. Using automated exposure control and adj ustment of the mA and/or kV according to patient size, radiation dose was kept as low as reasonably a chievable to obtain optimal diagnostic quality images. DICOM format image data is available electro nically for review and comparison. FINDINGS: CEREBRUM: The ventricles are normal for age. No evidence of midline shift, mass lesion, hemorrhage or acute in farction. No extra-axial fluid collections are seen. POSTERIOR FOSSA: The cerebellum and brainstem are intact. The 4th ventricle is midline. The cerebellopontine angle i s unremarkable. EXTRACRANIAL: The visualized portion of the orbits is intact. SKULL: The calvaria is intact. No evidence of skull fracture. CONCLUSION: Normal examination. Per Rodríguez MD on June 17, 2017 at 22:43 Board Certified Radiologist. This report was verified electronically.
[2017-06-17] MEDS ORDERED: POTASSIUM CHLORIDE 10 MEQ CONTROLLED RELEASE TAB PO ONE (23:15)
--- NOTE | 2017-06-18 12:16 | EKG ---
Date Performed: 06/17/2017 Time Performed: 22:07:16 PTAGE: 36 years EKG: Sinus rhythm MINIMAL ST DEPRESSION BORDERLINE ECG PREVIOUS TRACING : 12/15/2016 08.27Since the previous tracing, no significant change noted DOCTOR: Juvenal Zaidi Interpretating Date/Time 06/18/2017 12:13:22
== END 2017-06-18 01:27 | disposition home or self-care (01) ==
LOC: NEPC 20:57 → UNDOADMOB 21:38 → NEDA 21:38 → NEPC 06-18 01:27
DX: G43.909 Migraine, unspecified, not intractable, without status migrainosus (principal); R56.9 Unspecified convulsions; R11.0 Nausea; R94.31 Abnormal electrocardiogram [ECG] [EKG]; D68.9 Coagulation defect, unspecified; D68.51 Activated protein C resistance; I48.91 Unspecified atrial fibrillation; I10 Essential (primary) hypertension; F41.9 Anxiety disorder, unspecified; Z79.01 Long term (current) use of anticoagulants
CPT/HCPCS: 70450; 71045; 80053; 82550; 83735; 84443; 84484; 85025; 85610; 85730; 93005; 96374; 96375; 99285; J0780; J1170; J7040

== ENCOUNTER 2017-07-25 17:17 | Emergency (ER) | payer MEDICAID ==
[2017-07-25] MEDS: SODIUM CHLOR 0.9% 1000 ML INJ 1,000 ML IV (17:36)
[2017-07-25] MEDS: PROCHLORPERAZINE INJ 10 MG/2 ML VIAL IVP (17:45)
[2017-07-25] MEDS ORDERED: SODIUM CHLORIDE 0.9% FLUSH 10 ML FLUSH IVF (17:45)
[2017-07-25 18:55] LABS: AUTOMATED NEUTROPHIL # 4.4 TH/MM3 (1.8-7.7); BASOPHIL % 0.6 % (0.0-2.0); EOSINOPHIL # 0.2 TH/MM3 (0-0.4); EOSINOPHIL % 2.2 % (0.0-4.0); HEMATOCRIT 40.4 % (35.0-46.0); HEMO FLAGS DIFF FINAL; HEMOGLOBIN 13.7 GM/DL (11.6-15.3); LYMPH % 31.4 % (9.0-44.0); LYMPHOCYTE # 2.3 TH/MM3 (1.0-4.8); MEAN CELL VOLUME 89.7 FL (80.0-100.0); MEAN CORPUSCULAR HEMOGLOBIN 30.4 PG (27.0-34.0); MEAN PLATELET VOLUME 9.1 FL (7.0-11.0); MONO % 5.7 % (0.0-8.0); MONOCYTE # 0.4 TH/MM3 (0-0.9); NEUT % 60.1 % (16.0-70.0); PLATELET COUNT 243 TH/MM3 (150-450); RED CELL DISTRIBUTION WIDTH 12.9 % (11.6-17.2); WHITE BLOOD COUNT 7.3 TH/MM3 (4.0-11.0)
[2017-07-25 19:22] LABS: ANION GAP 8 MEQ/L (5-15); BICARBONATE 25.5 MEQ/L (21.0-32.0); BLOOD UREA NITROGEN 8 MG/DL (7-18); C-REACTIVE PROTEIN LESS THAN 0.29 MG/DL (0.00-0.30); CALCIUM 8.9 MG/DL (8.5-10.1); CHLORIDE 109 MEQ/L (98-107); GLOMERULAR FILTRATION RATE 71 ML/MIN (>89); GLUCOSE,RANDOM 83 MG/DL (74-106); SODIUM (NA) 142 MEQ/L (136-145)
[2017-07-25 19:23] LABS: POTASSIUM 3.4 MEQ/L (3.5-5.1)
[2017-07-25] MEDS: POTASSIUM CHLORIDE 25 MEQ EFFERVESCENT TAB PO (20:34)
== END 2017-07-25 20:55 | disposition home or self-care (01) ==
LOC: NEPD 17:17
DX: G43.901 Migraine, unspecified, not intractable, with status migrainosus (principal); G40.909 Epilepsy, unspecified, not intractable, without status epilepticus; I10 Essential (primary) hypertension; I48.91 Unspecified atrial fibrillation; Z79.01 Long term (current) use of anticoagulants
CPT/HCPCS: 70450; 80048; 84703; 85025; 86140; 96361; 96374; 99284-25

== ENCOUNTER 2017-11-21 15:30 | Inpatient (IN) ==
[2017-11-21] MEDS ORDERED: Morphine Inj 4 MG/ML Vial IV.PUSH ONE (16:07)
--- NOTE | 2017-11-21 16:14 | ED ---
HPI General Chief complaint: Psychiatric Symptoms Stated complaint: Psych Eval/DBPD Time Seen by Provider: 11/21/17 15:53 History of Present Illness HPI narrative: 37-year-old female brought in by PD under [employer] act. 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 According to the [employer] act the patient suffers from painful migraines majority of her life and finally found a doctor willing to perform surgery to potentially stop the migraines. Earlier today she was told that the surgery was being canceled for unknown reasons. Because of this patient became depressed and attempted to kill herself by jumping [place] the [employer] [place]. The patient also reports to me that she thought about taking a bunch of pills, but decided not to because she did not want her 17-year-old daughter to find her. She states that the increased stress has caused her daily migraine to become worse. She states that the pain is in the same distribution as her daily migraines, described as pressure occasional stabbing sensation, severe. She does have some blurry vision which states is usual for her migraines. No fevers. Related Data Home Medications Medication Instructions Recorded Confirmed gabapentin 600 mg PO TID 10/06/17 11/21/17 metoprolol succinate [Toprol XL] 25 mg PO DAILY 10/06/17 11/21/17 ondansetron [Zofran ODT] 4 mg PO TID PRN 10/06/17 11/21/17 rivaroxaban [Xarelto] 10 mg PO DAILY 10/06/17 11/21/17 topiramate [Topamax] 400 mg PO BID 10/06/17 11/21/17 trazodone 50 mg PO DAILY 10/06/17 11/21/17 Allergies Allergy/AdvReac Type Severity Reaction Status Date / Time diphenhydramine AdvReac Intermediate Hallucinati Verified 11/21/17 15:54 ons ketorolac AdvReac Intermediate Hallucinati Verified 11/21/17 15:54 ons Review of Systems ROS: all other systems reviewed are negative [facility] Medical History Medical History Seizures (Acute) Migraine (Acute) Factor II deficiency (Acute) Factor 5 Leiden mutation, heterozygous (Acute) History of hysterectomy (Acute) Social History Social History Substance History: No History of Abuse Second Hand Smoke Exposure: No Smoking Status: Never smoker How Often Do You Have a Drink Containing Alcohol: Never Immunization History Tetanus Immunization: <5 Years Hx Influenza Vaccine This Season: No Exam Narrative Exam Narrative: GENERAL: Well-developed, well-nourished, awake and alert, wearing sunglasses in a dark room, tearful. SKIN: Focused skin assessment warm/dry. No rash. HEAD: Atraumatic. Normocephalic. EYES: Pupils equal and round. No scleral icterus. No injection or drainage. ENT: No nasal bleeding or discharge. Mucous membranes pink and moist. NECK: Trachea midline. No JVD. No meningeal signs. CARDIOVASCULAR: Regular rate and rhythm. No murmur appreciated. RESPIRATORY: No accessory muscle use. Clear to auscultation. Breath sounds equal bilaterally. GASTROINTESTINAL: Abdomen soft, non-tender, nondistended. MUSCULOSKELETAL: No obvious deformities. No clubbing. No cyanosis. No edema. NEUROLOGICAL: Awake and alert. No obvious cranial nerve deficits. Motor grossly within normal limits. Normal speech. PSYCHIATRIC: Flat affect, poor eye contact, depressed mood, tearful. Course Reevaluation(s) Reevaluation #1: A [id number] evaluation has been performed per protocol after patient was placed in violent restraints. Patient allegedly had become violent after being [facility]. Patient is in restraints. Her physical is unremarkable. Lungs are clear heart regular. Abdomen soft nontender no extremity injury. Time: 23:27 Initial Documented Vital Signs Temperature 99.2 F 11/21/17 15:48 Pulse Rate 102 H 11/21/17 15:48 Respiratory Rate 20 11/21/17 15:48 Blood Pressure 119/88 11/21/17 15:48 Last Documented Vital Signs Temperature 99.2 F 11/21/17 15:48 Pulse Rate 116 H 11/21/17 20:48 Respiratory Rate 22 11/21/17 20:48 Blood Pressure 113/77 11/21/17 20:48 Pulse Oximetry 100 11/21/17 20:48 Sign Out Sign Out Data: Patient Sign Out occurred on 11/21/17 at 17:26. Patient's care was discussed, and care was transferred from Reg Brown MD to Robby Lopez. Sign Out Comment: Follow-up with labs and medical clearance for psychiatric evaluation. Last updated by Reg Brown MD at 11/21/17 17:02 Post-Handoff Eval: CBC does not show any left shift, there is no evidence of any anemia, and no evidence of any leukocytosis. Serum alcohol is negative Electrolytes are all within normal limits, normal TSH screen, normal kidney liver functions Presently the patient is medically clear for psychiatric evaluation Medical Decision Making MDM Narrative Medical Screen Exam Complete: Yes Emergency Medical Condition: Yes Differential Diagnosis Differential Diagnosis: Reaction disorder, suicidal ideation, migraine, intracranial abnormality, meningitis less likely Medical Records Medical records reviewed: Yes I reviewed the patient's medical records. Lab Data Result diagrams: 11/21/17 16:53 11/21/17 16:53 Lab Results 11/21/17 11/21/17 11/21/17 Range/Units 16:53 16:53 21:10 WBC 8.4 (4.0-11.0) th/mm3 RBC 4.72 (4.00-5.30) mil/mm3 Hgb 14.3 (11.6-15.3) gm/dL Hct 42.4 (35.0-46.0) % MCV 89.9 (80.0-100.0) fL MCH 30.2 (27.0-34.0) pg MCHC 33.6 (32.0-36.0) % RDW 13.1 (11.6-17.2) % Plt Count 205 (150-450) th/mm3 MPV 9.3 (7.0-11.0) fL Neut % (Auto) 74.5 H (16.0-70.0) % Lymph % (Auto) 18.4 (9.0-44.0) % Franklin % (Auto) 6.1 (0.0-8.0) % Eos % (Auto) 0.7 (0.0-4.0) % Baso % (Auto) 0.3 (0.0-2.0) % Neut # (Auto) 6.2 (1.8-7.7) th/mm3 Lymph # (Auto) 1.5 (1.0-4.8) th/mm3 Franklin # (Auto) 0.5 (0.0-0.9) th/mm3 Eos # (Auto) 0.1 (0.0-0.4) th/mm3 Baso # (Auto) 0.0 (0.0-0.2) th/mm3 WBC Differential . Differential Comment Auto diff final Sodium 142 (136-145) meq/L Potassium 3.4 L (3.5-5.1) meq/L Chloride 105 (98-107) meq/L Carbon Dioxide 24.6 (21.0-32.0) meq/L Anion Gap 12 (5-15) meq/L BUN 12 (7-18) mg/dL Creatinine 0.95 (0.50-1.00) mg/dL Estimated GFR 67 L (>89) mL/min Random Glucose 83 (74-106) mg/dL Calcium 9.5 (8.5-10.1) mg/dL Total Bilirubin 0.5 (0.2-1.0) mg/dL AST 17 (15-37) U/L ALT 22 (10-53) U/L Alkaline Phosphatase 61 (45-117) U/L Total Protein 8.3 H (6.4-8.2) g/dL Albumin 4.8 (3.4-5.0) g/dL TSH 1.220 (0.358-3.740) uIU/mL Urine Opiates Screen Pos H (Neg) Ur Barbiturates Screen Neg (Neg) Ur Amphetamines Screen Neg (Neg) U Benzodiazepines Scrn Neg (Neg) Urine Cocaine Screen Neg (Neg) U Cannabinoids Screen Neg (Neg) Serum Alcohol Less than 3 (0-5) mg/dL Discharge Plan Discharge Disposition Patient Disposition: 30 Still Patient Discharge Condition Condition: Fair Discharge Details Diagnosis: Encounter for psychiatric assessment Physicians Team ED Provider: Robby Lopez ED Midlevel Provider: Jh Tran Primary Care Provider: UNKNOWN, Rxs /Orders / Referrals /Forms Prescriptions: No Action gabapentin 600 mg Tablet 600 mg PO TID RF: 0 trazodone 50 mg Tablet 50 mg PO DAILY RF: 0 topiramate [Topamax] 200 mg Tablet 400 mg PO BID RF: 0 metoprolol succinate [Toprol XL] 25 mg Tablet Extended Release 24 Hr 25 mg PO DAILY RF: 0 ondansetron [Zofran ODT] 4 mg Tablet,Disintegrating 4 mg PO TID PRN (Reason: Nausea) RF: 0 rivaroxaban [Xarelto] 10 mg Tablet 10 mg PO DAILY RF: 0 Status ED Status: Medically Cleared
[2017-11-21 17:06] LABS: Baso % (Auto) 0.3 % (0.0-2.0); Eos # (Auto) 0.1 th/mm3 (0.0-0.4); Eos % (Auto) 0.7 % (0.0-4.0); Hematocrit 42.4 % (35.0-46.0); Hemoglobin 14.3 gm/dL (11.6-15.3); Lymph # (Auto) 1.5 th/mm3 (1.0-4.8); Lymph % (Auto) 18.4 % (9.0-44.0); Mean Corpuscular HGB Conc 33.6 % (32.0-36.0); Mean Corpuscular Hemoglobin 30.2 pg (27.0-34.0); Mean Corpuscular Volume 89.9 fL (80.0-100.0); Mean Platelet Volume 9.3 fL (7.0-11.0); Mono # (Auto) 0.5 th/mm3 (0.0-0.9); Mono % (Auto) 6.1 % (0.0-8.0); Neut # (Auto) 6.2 th/mm3 (1.8-7.7); Neut % (Auto) 74.5 % (16.0-70.0); Platelet Count 205 th/mm3 (150-450); Red Blood Count 4.72 mil/mm3 (4.00-5.30); Red Cell Distribution Width 13.1 % (11.6-17.2); White Blood Count 8.4 th/mm3 (4.0-11.0)
[2017-11-21 17:32] LABS: Albumin 4.8 g/dL (3.4-5.0); Anion Gap 12 meq/L (5-15); Aspartate Aminotransferase 17 U/L (15-37); Blood Urea Nitrogen 12 mg/dL (7-18); Calcium 9.5 mg/dL (8.5-10.1); Carbon Dioxide 24.6 meq/L (21.0-32.0); Chloride 105 meq/L (98-107); Glomerular Filtration Rate 67 mL/min (>89); Glucose,Random 83 mg/dL (74-106); Potassium 3.4 meq/L (3.5-5.1); Sodium 142 meq/L (136-145)
[2017-11-21 17:43] LABS: Alanine Aminotransferase 22 U/L (10-53); Alkaline Phosphatase 61 U/L (45-117); Total Protein 8.3 g/dL (6.4-8.2)
[2017-11-21] MEDS ORDERED: Topiramate 200 MG Tablet PO ONE (20:43)
[2017-11-21] MEDS ORDERED: traZODone 50 MG Tablet PO ONE (20:43)
[2017-11-21] MEDS ORDERED: Rivaroxaban 10 MG Tablet PO ONE (20:43)
[2017-11-21 21:59] LABS: Amphetamine Screen,Urine Neg (Neg); Barbiturate Screen,Urine Neg (Neg); Cannabinoid Screen,Urine Neg (Neg); Cocaine Screen,Urine Neg (Neg)
[2017-11-21 22:18] LABS: Opiate Screen,Urine Pos (Neg)
[2017-11-21] MEDS ORDERED: Haloperidol Inj 5 MG/ML Ampul IM ONE (23:19)
[2017-11-22 06:32] VITALS: RESP 16
[2017-11-22] MEDS ORDERED: Aluminum/Magnesium/Simethacone Susp 30 ML UDC PO PRN (08:57)
[2017-11-22] MEDS ORDERED: Bisacodyl 10 MG Supp RECTAL PRN (08:57)
[2017-11-22] MEDS: Senna/Docusate Sodium 8.6/50 MG Tablet PO SCH ×2 (13:20→21:56)
--- NOTE | 2017-11-22 14:45 | P.HPPSY ---
Provisional Diagnosis Admission Date: November 22, 2017 08:57 Bagwell I.: Adjustment disorder with depressed mood, history of depression and anxiety, opiates use disorder Bagwell II.: Cluster B personality traits Bagwell III.: Migraines, seizures Competence Certification of Person's Competence To Provide Express and Informed Consent I have personally examined Luis E Keane, a person being served at [facility] on, November 22, 2017 1431. Express and informed consent means consent voluntarily given in writing, by a competent person, after sufficient explanation and disclosure of the subject matter involved to enable the person to make a knowing and willful decision without any element of force, fraud, deceit, duress, or other form of constraint or coercion. This person is 18 years of age or older, is not now known to be incompetent to consent to treatment with a guardian advocate, and does not have a health care surrogate or proxy currently making medical treatment decisions. I have found this person to be one of the following: [] Competent to provide express and informed consent, as defined above, for voluntary admission to this facility and is competent to provide express and informed consent for treatment. He/she has the consistent capacity to make well reasoned, willful, and knowing decisions concerning his or her medical or mental health treatment. The person fully and consistently understands the purpose of the admission for examination/placement and is fully capable of personally exercising all rights assured under [place] [] Incompetent to provide express and informed consent to voluntary admission, and this is incompetent to provide express and informed consent to treatment. The person must be transferred to involuntary status and a petition for a guardian advocate filed with the Circuit Court. [x] Refusing to provide express and informed consent to voluntary admission but is competent to provide express and informed consent for treatment. The person must be discharged or transferred to involuntary status. Form shall be completed within 24 hours of a person's arrival at the receiving facility and filed in the clinical record of each person: 1. Admitted on a voluntary basis 2. Permitted to provide express and informed consent to his/her own treatment 3. Allowed to transfer from involuntary to voluntary status 4. Prior to permitting a person to consent to his or her own treatment after having been previously found incompetent to consent to treatment. History of Present Illness Capacity: Has capacity History of Present Illness: The patient is a 37-year-old woman, domiciled in [facility] with her , she has a 17 years old daughter, unemployed, with psychiatric history of depression and anxiety, no previous psychiatric hospitalizations, no previous suicide attempts, medical history of seizures and migraine, was brought in by PD under [place] act. 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 According to the [place]ury act the patient suffers from painful migraines majority of her life and finally found a doctor willing to perform surgery to potentially stop the migraines. Earlier today she was told that the surgery was being canceled for unknown reasons. Because of this patient became depressed and attempted to kill herself by jumping [place] the [place]. The patient also reports to me that she thought about taking a bunch of pills, but decided not to because she did not want her 17-year-old daughter to find her. She states that the increased stress has caused her daily migraine to become worse. She states that the pain is in the same distribution as her daily migraines, described as pressure occasional stabbing sensation, severe. She does have some blurry vision which states is usual for her migraines. She states that her migraine is so frustrating and severe that she does not get treatment she needs to be . She clarifies that she is still have suicidal ideation with a plan of overdosing. The patient reports that due to her continuous migraine and the inability of the doctors to give her medications "accusing all the time of drug-seeking" she has being quite depressed, hopeless, helpless, worthless, with decreased appetite, not sleeping, and persistent suicidal ideation. The patient does not contract for safety and she seemed to be quite emotionally this regulated. She is oriented 3. Logical, coherent goal directed. PPHx: Anxiety and depression, no previous admission, no previous suicide attempts PMHx: Migraine, seizures Family Hx: No family psychiatric Substance Hx: Patient is positive for opiates, but she denies the use of illegal obvious she cannot clarify what is she taking medication for Social Hx: Patient was born and raised in [facility], she lives in [facility] with her and 17 years old daughter, unemployed, highest level of education is college - Inpatient Certification I certify that the inpatient services were ordered in accordance with Medicare regulations governing the order. This includes certification that hospital inpatient services are reasonable and necessary and in the case of services not specified as inpatient-only under 42 CFR 419.22(n), that they are appropriately provided as inpatient services in accordance to with the 2-midnight benchmark under 43 CFR 412.3(e) I certify that inpatient psychiatric hospital services are medically necessary. Evaluation and treatment and/or diagnostic testing are expected to improve the patient's condition. The patient needs on a daily basis, active treatment furnished directly by or requiring the supervision of inpatient psychiatric facility personnel. Estimated Total Length of Stay (Days): 7 Plans for Post Hospital Care: Not yet determined Review of Systems All other systems reviewed negative except as stated in HPI Psychiatric: Reports anxiety, Reports depression, Reports difficulty concentrating, Reports mood swings, Reports thoughts of hurting/killing yourself PMF - History History Provided By: Patient - Medical History Medical History: Medical History (Last Updated 11/21/17 @ 15:53 by Leslie Lord) Seizures (Acute) Migraine (Acute) Factor II deficiency (Acute) Factor 5 Leiden mutation, heterozygous (Acute) History of hysterectomy (Acute) - Tobacco History Second Hand Smoke Exposure: No Smoking Status: Never smoker - Alcohol History How Often Do You Have a Drink Containing Alcohol: Never - Substance Use History Substance History: No History of Abuse - Immunization History Tetanus Immunization: <5 Years Hx Influenza Vaccine This Season: No Medications and Allergies Active Medications: Active Medications Al Hydrox/Mg Hydrox/Simethicone (Mag-Al Plus Susp Liq) 30 ml PO Q6H PRN PRN Reason: DYSPEPSIA Al Hydroxide/Mg Hydroxide (Milk Of Magnesia Liq) 30 ml PO Q12H PRN PRN Reason: Mild Constipation Bisacodyl (Dulcolax Supp) 10 mg RECTAL DAILY PRN PRN Reason: SEVERE CONSITIPATION Lactulose (Lactulose Liq) 30 ml PO DAILY PRN PRN Reason: SEVERE CONSITIPATION Senna/Docusate Sodium (Candace-Colace) 1 tab PO BID YASMIN Last Admin: 11/22/17 13:20 Dose: Not Given Sennosides (Senokot) 17.2 mg PO Q12H PRN PRN Reason: Moderate Constipation Allergies Allergy/AdvReac Type Severity Reaction Status Date / Time diphenhydramine AdvReac Intermediate Hallucinati Verified 11/21/17 15:54 ons ketorolac AdvReac Intermediate Hallucinati Verified 11/21/17 15:54 ons Home Medications Medication Instructions Recorded Confirmed Type gabapentin 600 mg PO TID 10/06/17 11/21/17 History metoprolol succinate [Toprol XL] 25 mg PO DAILY 10/06/17 11/21/17 History ondansetron [Zofran ODT] 4 mg PO TID PRN 10/06/17 11/21/17 History rivaroxaban [Xarelto] 10 mg PO DAILY 10/06/17 11/21/17 History topiramate [Topamax] 400 mg PO BID 10/06/17 11/21/17 History trazodone 50 mg PO DAILY 10/06/17 11/21/17 History Results - Labs CBC & Chem 7: 11/21/17 16:53 11/21/17 16:53 Labs: Laboratory Results - last 24 hr 11/21/17 11/21/17 11/21/17 16:53 16:53 21:10 WBC 8.4 RBC 4.72 Hgb 14.3 Hct 42.4 MCV 89.9 MCH 30.2 MCHC 33.6 RDW 13.1 Plt Count 205 MPV 9.3 Neut % (Auto) 74.5 H Lymph % (Auto) 18.4 Boyle % (Auto) 6.1 Eos % (Auto) 0.7 Baso % (Auto) 0.3 Neut # (Auto) 6.2 Lymph # (Auto) 1.5 Boyle # (Auto) 0.5 Eos # (Auto) 0.1 Baso # (Auto) 0.0 WBC Differential . Differential Comment Auto diff final Sodium 142 Potassium 3.4 L Chloride 105 Carbon Dioxide 24.6 Anion Gap 12 BUN 12 Creatinine 0.95 Estimated GFR 67 L Random Glucose 83 Calcium 9.5 Total Bilirubin 0.5 AST 17 ALT 22 Alkaline Phosphatase 61 Total Protein 8.3 H Albumin 4.8 TSH 1.220 Urine Opiates Screen Pos H Ur Barbiturates Screen Neg Ur Amphetamines Screen Neg U Benzodiazepines Scrn Neg Urine Cocaine Screen Neg U Cannabinoids Screen Neg Serum Alcohol Less than 3 Exam Vital signs: Vital Signs 11/21/17 15:48 11/21/17 20:48 11/22/17 06:28 Temperature 99.2 F Pulse Rate 102 H 116 H 108 H Respiratory Rate 20 22 16 Blood Pressure 119/88 113/77 92/62 L Pulse Oximetry 100 100 11/22/17 10:13 11/22/17 12:05 Temperature 98.2 F 99.3 F Pulse Rate 106 H 89 Respiratory Rate 16 Blood Pressure 82/53 L 117/68 Pulse Oximetry 97 99 Intake & Output 11/21/17 11/22/17 11/22/17 18:59 06:59 18:59 Weight 63.503 kg Other: Weight On Admission 61.235 kg Narrative: No tremors, no EPS, no psychomotor agitation retardation, no gait disturbance Mental Status Examination Appearance: Appropriate Consciousness: Alert Orientation: x4 Motor Activity: Normal gait Speech: Unremarkable Language: Adequate Fund of Knowledge: Adequate Attention and Concentration: Adequate Memory: Unremarkable Mood: Angry, Irritable Affect: Irritable Thought Process & Associations: Intact Thought Content: Appropriate Hallucination Type: None Delusion Type: None Suicidal Ideation: Yes Suicidal Plan: No Suicidal Intention: No Homicidal Ideation: No Homicidal Plan: No Homicidal Intention: No Insight: Poor Judgment: Poor Assessment and Plan - Plan Plan: Estimated LOS: [] days On my psychiatric evaluation today find a patient that is irritable, behaviorally and emotionally this regulated, superficially cooperative, stating that she wants to . She reports that she has been suffering of severe migraines every day, yesterday she was hoping to have a procedure for migraine, but the doctors apparently canceled the procedure at the last minute. For this reason, the patient reports, that she felt so depressed that she tried to commit suicide by jumping off a bridge, she is still have suicidal ideation at this moment, and is unable to contract for safety. There is a patient with psychiatric history of depression, anxiety, no previous psychiatric hospitalizations, no previous suicide attempts. She denies the use of illegal drugs, even though she is positive for opiates and she cannot explain the source of this substance. I could not get any collateral information at the moment. The patient has an elevated risk of danger to self, she will be admitted in psychiatry for longitudinal observation and safety. Even though I strongly think that that are a personality component/drug-seeking behavior behind this presentation, a major mood disorder decompensation needs to be carefully considered. Start trazodone 50 mg at bedtime for depression. Will consult psychiatry for second opinion. Will consult hospitalist for treatment of migraine. Patient also has history of seizures (withdrawal related??), Will restart her topiramate 200 mg twice daily and gabapentin 600 mg 3 times daily. Brief supportive psychotherapy provided. Justification for Continued Inpatient Stay: Admission recommended
[2017-11-22] MEDS: Gabapentin 300 MG Capsule PO SCH (17:21)
[2017-11-22] MEDS: Topiramate 200 MG Tablet PO SCH (21:54)
[2017-11-23 05:38] VITALS: BP 100/51; PULSE 90; TEMP 98.4; O2SAT 95
[2017-11-23 08:53] LABS: Calcium 9.1 mg/dL (8.5-10.1); Carbon Dioxide 19.5 meq/L (21.0-32.0); Potassium 3.3 meq/L (3.5-5.1)
[2017-11-23 08:57] LABS: Chol/HDL Ratio 3.37 Ratio; HDL Cholesterol 56.9 mg/dL (40.0-60.0)
[2017-11-23] MEDS ORDERED: traZODone 50 MG Tablet PO SCH (09:00)
[2017-11-23] MEDS: Topiramate 200 MG Tablet PO SCH (09:29)
[2017-11-23] MEDS: Senna/Docusate Sodium 8.6/50 MG Tablet PO SCH (09:30)
[2017-11-23] MEDS: Gabapentin 300 MG Capsule PO SCH (09:30)
--- NOTE | 2017-11-23 11:13 | P.DSPSY ---
Psychiatry Discharge Summary Inpatient Psychiatric care?: Yes Advance Directives: No Mental Health Advance Directive: No Health Care Proxy: No - Admission Admission Date: November 22, 2017 08:57 - Admission Diagnosis (1) Adjustment disorder with mixed disturbance of emotions and conduct Code(s): F43.25 - Adjustment disorder with mixed disturbance of emotions and conduct Brief History: The patient is a 37-year-old woman, domiciled in [facility] with her , she has a 17 years old daughter, unemployed, with psychiatric history of depression and anxiety, no previous psychiatric hospitalizations, no previous suicide attempts, medical history of seizures and migraine, was brought in by PD under [employer] act. 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 According to the [place]ury act the patient suffers from painful migraines majority of her life and finally found a doctor willing to perform surgery to potentially stop the migraines. Earlier today she was told that the surgery was being canceled for unknown reasons. Because of this patient became depressed and attempted to kill herself by jumping [place] the [place]. The patient also reports to me that she thought about taking a bunch of pills, but decided not to because she did not want her 17-year-old daughter to find her. She states that the increased stress has caused her daily migraine to become worse. She states that the pain is in the same distribution as her daily migraines, described as pressure occasional stabbing sensation, severe. She does have some blurry vision which states is usual for her migraines. She states that her migraine is so frustrating and severe that she does not get treatment she needs to be . She clarifies that she is still have suicidal ideation with a plan of overdosing. The patient reports that due to her continuous migraine and the inability of the doctors to give her medications "accusing all the time of drug-seeking" she has being quite depressed, hopeless, helpless, worthless, with decreased appetite, not sleeping, and persistent suicidal ideation. The patient does not contract for safety and she seemed to be quite emotionally this regulated. She is oriented 3. Logical, coherent goal directed. PPHx: Anxiety and depression, no previous admission, no previous suicide attempts PMHx: Migraine, seizures Family Hx: No family psychiatric Substance Hx: Patient is positive for opiates, but she denies the use of illegal obvious she cannot clarify what is she taking medication for Social Hx: Patient was born and raised in [facility], she lives in [facility] with her and 17 years old daughter, unemployed, highest level of education is college Tobacco Use In Past 30 Days: No How Often Do You Have a Drink Containing Alcohol: Never Hospital Course: Patient seen in her room with nurse Rani, chart reviewed, patient alert oriented white female gives a long painful history of severe persistent debilitating migraines with hypercoagulability, post stroke, with very poor response to multiple treatments including Botox. She was scheduled for nerve decompression by the neurosurgeon who cancel that within a few days of the operative date patient has attempted to find another neurosurgeon but with her insurance she has been unable to find one that we will do the procedure this led to her becoming more depressed and impulsive with the gesture that occurred just prior to this admission. Today patient is alert oriented calm she is feeling better she is processed the disappointment of the cancellation of the surgery. She now denies suicidality homicidality voices or visions. She denies prior psychiatric contact hospitalizations or psychotropic medications that she has been tried on various medications by a neurologist including trazodone and Elavil in the past. She is also been on a trial of Botox with little success. However patient is a very supportive she has an adult daughter with CP was quite supportive and is taking a caregiving role with her. At this time patient does not meet Chowdhury act criteria she is able to contract to do no harm she denies suicidality. At this time I feel patient will be safely discharged to her family the B no Rx by me she may continue her own scheduled medications. I did suggest perhaps participation in the [employer] support groups in the Monday or afternoons. Thus patient to follow up with them on PCP and neurologist with no Rx by me - Discharge Discharge Date: 11/23/17 - Discharge Diagnosis (1) Adjustment disorder with mixed disturbance of emotions and conduct Code(s): F43.25 - Adjustment disorder with mixed disturbance of emotions and conduct Status: Acute Discharge Disposition: Home - Discharge Instructions Discharge Diet: Regular Diet Activities You Can Perform: Regular- No Restrictions - Discharge Time > 30 minutes Mental Status Examination Appearance: Appropriate Consciousness: Alert Orientation: x4 Motor Activity: Normal gait Speech: Unremarkable Language: Adequate Fund of Knowledge: Adequate Attention and Concentration: Adequate Memory: Unremarkable Mood: Angry, Irritable Affect: Irritable Thought Process & Associations: Intact Thought Content: Appropriate Hallucination Type: None Delusion Type: None Suicidal Ideation: Yes Suicidal Plan: No Suicidal Intention: No Homicidal Ideation: No Homicidal Plan: No Homicidal Intention: No Insight: Poor Judgment: Poor Discharge/Advance Care Plan - Results Vital Signs: Last Vital Signs Temp 98.4 F 11/23/17 05:35 Pulse 90 11/23/17 05:35 Resp 16 11/23/17 05:35 BP 100/51 L 11/23/17 05:35 Pulse Ox 95 11/23/17 05:35 Lab Results: Abnormal Lab Results 11/23/17 08:00 Sodium 137 Potassium 3.3 L Chloride 105 Carbon Dioxide 19.5 L Anion Gap 13 BUN 16 Creatinine 0.95 Estimated GFR 67 L Random Glucose 104 Calcium 9.1 Triglycerides 104 Cholesterol 192 LDL Cholesterol, Calc 114 H HDL Cholesterol 56.9 Cholesterol/HDL Ratio 3.37 Laboratory Results Triglycerides 104 mg/dL (42-150) 11/23/17 08:00 Cholesterol 192 mg/dL (120-200) 11/23/17 08:00 LDL Cholesterol, Calc 114 mg/dL (0-99) H 11/23/17 08:00 HDL Cholesterol 56.9 mg/dL (40.0-60.0) 11/23/17 08:00 TSH 1.220 uIU/mL (0.358-3.740) 11/21/17 16:53 Summary of Procedures: None done Pending Results: None - Medications Number of antipsychotic medications at discharge: 0 - Discharge Care Plan Goals to Promote Your Health: * To prevent worsening of your condition and complications * To maintain your health at the optimal level Directions to Meet Your Goals: Take your medications as prescribed Follow your dietary instruction Follow activity as directed Keep your appointments as scheduled Take your immunizations and boosters as scheduled If your symptoms worsen call your PCP, if no PCP go to Urgent Care Center or Emergency Room For 10/10 questions related to your inpatient stay or results of tests pending at discharge, please contact Dr. Pedro Luis Vieyra MD at Smoking is Dangerous to Your Health. Avoid second hand smoking
[2017-11-23 16:03] LABS: Hemoglobin A1c 4.8 % (4.3-6.0)
== END 2017-11-23 12:15 | disposition home or self-care (01) ==
LOC: NEPD 15:30 → NEDA 11-22 08:57 → H260 11-22 11:49
PROVIDERS: ADMIT Psychiatry & Neurology Psychiatry; ATTEND Psychiatry & Neurology Psychiatry